=== PATIENT | male | born 1995 | race Caucasian/White ===

== ENCOUNTER 2020-10-01 12:13 | Outpatient (CLI) | payer MEDICAID ==
[2020-10-01 12:41] LABS: ANION GAP 12.6 (8-16); CARBON DIOXIDE 28.9 mmol/L (21-32); CREATININE 0.9 mg/dL (0.6-1.3); PHOSPHORUS 4.1 mg/dL (2.5-4.9); POTASSIUM 4.5 mmol/L (3.5-5.1)
== END 2020-10-01 21:38 | disposition home or self-care (01) ==
LOC: MLB 12:13
DX: N28.1 Cyst of kidney, acquired (principal)
CPT/HCPCS: 36415; 82040; 82435; 82565; 82947; 84100; 84132; 84295; 84520

== ENCOUNTER 2020-10-02 09:06 | Outpatient (CLI) | payer MEDICAID | END 2020-10-02 21:33 | disposition home or self-care (01) | LOC: MCT 09:06 | DX: R91.1 Solitary pulmonary nodule (principal); R16.0 Hepatomegaly, not elsewhere classified; R59.0 Localized enlarged lymph nodes | CPT/HCPCS: 72133; 74178; Q9967 ==

== ENCOUNTER 2020-10-04 21:20 | Emergency (ER) | payer MEDICAID ==
[~2020-10-04] VITALS: Ht 175.3 cm; Wt 63.0 kg
--- NOTE | 2020-10-04 21:20 | NUR ---
25 Y/O MALE PT CAME TO THE ED, WITH CHEST PAIN. PT STATES THAT HE WA [facility] FEW DAYS AGO FOR TESTICULAR PAIN. A&OX4, GCS 15. PT STATES MINIMAL SOB. DENIES N/V/D; SKIN IS PINK/WARM/DRY; AAOX4 WITH EVEN AND STEADY GAIT; LUNGS CLEAR BL; HR EVEN AND REGULAR; PT DENIES ANY FEVER, CP, OR COUGH AT THIS TIME; PATIENT STATES PAIN OF 0/10 AT THIS TIME; VSS; PATIENT POSITIONED FOR COMFORT; HOB ELEVATED; BEDRAILS UP X2; BED DOWN. ER MD MADE AWARE OF PT STATUS. PMH: TESTICULAR CANCER STACEY
[2020-10-04 21:22] VITALS: BP 133/90
--- NOTE | 2020-10-04 21:40 | NUR ---
ERMD AT BEDSIDE EXAMINING PT
[2020-10-04 22:16] LABS: HEMATOCRIT 35.7 % (36-52); HEMOGLOBIN 11.9 g/dL (12.0-18.0); MEAN CORPUSCULAR HEMOGLOBIN 28 pg (27-31); MEAN CORPUSCULAR HGB CONC 33 g/dL (33-37); MEAN CORPUSCULAR VOLUME 82.7 fL (80-94); PLATELET COUNT (AUTO) 359 K/uL (140-450); RED BLOOD CELL COUNT(AUTO) 4.32 MIL/uL (4.20-6.10); RED CELL DISTRIBUTION WIDTH 15.1 % (11.6-13.7); WHITE BLOOD COUNT (AUTO) 7.1 K/uL (4.8-10.8)
--- NOTE | 2020-10-04 22:21 | NUR ---
ULTRASOUND AT BEDSIDE
[2020-10-04 22:32] LABS: ALBUMIN 2.7 g/dL (3.4-5.0); ANION GAP 12.8 (8-16); CARBON DIOXIDE 26.2 mmol/L (21-32); CREATININE 0.9 mg/dL (0.6-1.3); TOTAL BILIRUBIN 0.3 mg/dL (0.0-1.0)
[2020-10-04 22:40] VITALS: BP 133/90
[2020-10-04 22:46] LABS: EOSINOPHILS % (MANUAL) 2 % (0-4); LYMPHOCYTES % (MANUAL) 21 % (20-46); MONOCYTES % (MANUAL) 13 % (5-12)
--- NOTE | 2020-10-04 23:22 | NUR ---
MARS COLLECTED AND SENT TO LAB, HANDED TO CPT BROOKE
--- NOTE | 2020-10-04 23:32 | NUR ---
PT TAKEN TO CT SCAN VIA W/C
--- NOTE | 2020-10-04 23:44 | NUR ---
PT RETURNED FROM CT SCAN
--- NOTE | 2020-10-05 01:39 | NUR ---
Patient discharged with v/s stable. Written and verbal after care instructions given and explained. Patient verbalized understanding. Ambulatory with steady gait. All questions addressed prior to discharge. Advised to follow up with PMD.
== END 2020-10-05 01:39 | disposition home or self-care (01) ==
LOC: MED 21:20
DX: R07.9 Chest pain, unspecified (principal); Z20.822 Contact with and (suspected) exposure to COVID-19; C62.90 Malignant neoplasm of unspecified testis, unspecified whether descended or undescended
CPT/HCPCS: 36415; 71275; 76870; 80053; 83880; 84484; 85025; 87426; 93005; 99285; Q9967

== ENCOUNTER 2020-10-26 16:00 | Emergency (ER) | payer MEDICAID, OTHER ==
[~2020-10-26] VITALS: Ht 175.3 cm; Wt 59.0 kg
[2020-10-26 16:09] VITALS: BP 148/96
[2020-10-26] MEDS ORDERED: PRED20TA5 PO (17:07)
[2020-10-26 17:16] VITALS: BP 148/96
== END 2020-10-26 17:15 | disposition home or self-care (01) ==
LOC: MED 16:00
DX: R21 Rash and other nonspecific skin eruption (principal); C62.90 Malignant neoplasm of unspecified testis, unspecified whether descended or undescended
CPT/HCPCS: 99283

== ENCOUNTER 2020-11-08 12:24 | Emergency (ER) | payer OTHER ==
[~2020-11-08] VITALS: Ht 175.3 cm; Wt 54.4 kg
[~2020-11-08 12:24] MED LIST: PRED20TA5 PO
[2020-11-08 12:33] VITALS: BP 118/69
--- NOTE | 2020-11-08 12:38 | NUR ---
Patient ambulated with steady gait to bed 5.
--- NOTE | 2020-11-08 12:42 | NUR ---
25 Y/O MALE C/O ABDOMINAL PAIN X 1WEEK. PT DENIES N/V, DENIES FEVER/CHILLS. PT STATES HE HAD ONLY 2 BM IN 1 WEEK WHICH IS ABNORMAL FOR HIM. ABDOMEN IS SOFT, DISTENDED, TENDER TO PALPATION, BOWEL SOUNDS ACTIVE X4. LAST BM 11/02/20. PMH: HTN, TESTICULAR CA CHEMOTHERAPY, PORT CATH FOR CHEMO RX, MONITOR ON RIGHT UPPER ARM FOR RBC LEVELS. NKA
--- NOTE | 2020-11-08 12:57 | NUR ---
Dr. Mathew at pt bedside for further evaluation.
--- NOTE | 2020-11-08 13:12 | NUR ---
Pt taken to CT via W/C.
--- NOTE | 2020-11-08 13:29 | NUR ---
Pt back to ER bed 5 via W/C.
[2020-11-08 14:39] VITALS: BP 126/74
[2020-11-08] MEDS ORDERED: MIRABULK PO ×2 (14:58→15:28)
--- NOTE | 2020-11-08 15:40 | NUR ---
Patient discharged with v/s stable. Written and verbal after care instructions given and explained. Patient alert, oriented and verbalized understanding of instructions. Ambulatory with steady gait. All questions addressed prior to discharge. ID band removed. Patient advised to follow up with PMD. Rx of miralax glycol 17gram daily PRN constipation given. Patient educated on indication of medication including possible reaction and side effects. Opportunity to ask questions provided and answered.
== END 2020-11-08 15:40 | disposition home or self-care (01) ==
LOC: MED 12:24
DX: K59.00 Constipation, unspecified (principal)
CPT/HCPCS: 99284

== ENCOUNTER 2021-10-10 09:36 | Emergency (ER) | payer OTHER ==
[~2021-10-10] VITALS: Ht 154.9 cm; Wt 61.3 kg
[~2021-10-10 09:36] MED LIST changes: +MIRABULK PO
[2021-10-10 09:51] VITALS: BP 109/73
--- NOTE | 2021-10-10 09:56 | NUR ---
PATIENT AMBULATED TO BED 9.
--- NOTE | 2021-10-10 10:00 | NUR ---
26 y/o Male BIB mother for c/o "bloating x 7 days." Pt denies pain. + BS heard x 4. abd is non-tender to palpation and passing flatus at this time. Last BM 10/09/21, WNL. Denies N/V/D/CP at this time. PmHx: Testicular CA Allergies: Denies
--- NOTE | 2021-10-10 10:03 | NUR ---
DR. VAZQUEZ BEDSIDE EVALUATING PT
[2021-10-10] MEDS ORDERED: NACL 0.9% 1,000 ML IV SCH (10:05)
--- NOTE | 2021-10-10 10:15 | NUR ---
Blood specimens collected and walked to lab.
--- NOTE | 2021-10-10 10:30 | NUR ---
Pt taken to radiolgy for CT on wheelchair.
--- NOTE | 2021-10-10 10:35 | NUR ---
Pt returned to bed 09 at this time
--- NOTE | 2021-10-10 10:39 | NUR ---
Pt refused IVF at this time. Educated pt about risks/benefits, cont to refuse. CARLOS Mcnamara made aware.
[2021-10-10 10:49] LABS: BASOPHILS % (AUTO) 0.7 % (0.0-2.0); EOSINOPHILS % (AUTO) 1.6 % (0.0-4.0); HEMATOCRIT 43.1 % (36-52); HEMOGLOBIN 14.6 g/dL (12.0-18.0); LYMPHOCYTES # (AUTO) 1.4 K/uL (2.0-11.5); LYMPHOCYTES % (AUTO) 50.7 % (20.5-51.1); MEAN CORPUSCULAR HEMOGLOBIN 31 pg (27-31); MEAN CORPUSCULAR HGB CONC 34 g/dL (33-37); MONOCYTES # (AUTO) 0.4 K/uL (0.8-1.0); MONOCYTES % (AUTO) 13.4 % (1.7-9.3); NEUTROPHILS # (AUTO) 0.9 K/uL (1.8-7.7); NEUTROPHILS % (AUTO) 33.6 % (42.2-75.2); PLATELET COUNT (AUTO) 184 K/uL (140-450); RED BLOOD CELL COUNT(AUTO) 4.74 MIL/uL (4.20-6.10); RED CELL DISTRIBUTION WIDTH 13.8 % (11.6-13.7); WHITE BLOOD COUNT (AUTO) 2.8 K/uL (4.8-10.8)
[2021-10-10] MEDS ORDERED: MIRABULK PO (11:36)
[2021-10-10 11:40] LABS: ALBUMIN 3.9 g/dL (3.4-5.0); CARBON DIOXIDE 30.5 mmol/L (21-32); CREATININE 0.8 mg/dL (0.6-1.3); POTASSIUM 4.5 mmol/L (3.5-5.1); TOTAL BILIRUBIN 0.5 mg/dL (0.0-1.0)
[2021-10-10 12:00] VITALS: BP 111/68
--- NOTE | 2021-10-10 12:00 | NUR ---
Patient discharged with v/s stable. Written and verbal after care instructions given and explained with teachback. Patient alert, oriented and verbalized understanding of instructions. Ambulatory with steady gait. All questions addressed prior to discharge. ID band removed. Patient advised to follow up with PMD. Rx of miralax given. Patient educated on indication of medication including possible reaction and side effects with teachback. Opportunity to ask questions provided and answered.
== END 2021-10-10 12:00 | disposition home or self-care (01) ==
LOC: MED 09:36
DX: R14.0 Abdominal distension (gaseous) (principal); K59.00 Constipation, unspecified; Z79.899 Other long term (current) drug therapy; Z85.47 Personal history of malignant neoplasm of testis; Z98.890 Other specified postprocedural states
CPT/HCPCS: 36415; 80053; 83690; 85025; 99284